=== PATIENT | female | born 1945 | race Caucasian/White ===

== ENCOUNTER → 2021-03-07 | Outpatient (CLI) | payer MEDICARE ==
[~2021-03-07] MED LIST: OMNIPAQUE 350 MG/ML, 150 ML BOTTLE ONE
== END | disposition home or self-care (01) ==
LOC: CFH 14:03
PROVIDERS: ATTEND Internal Medicine Cardiovascular Disease
DX: I48.0 Paroxysmal atrial fibrillation (principal)
CPT/HCPCS: 75572; 82565; Q9967

== ENCOUNTER 2021-05-08 09:53 | Observation (INO) | payer MEDICARE ==
[~2021-05-08] VITALS: Ht 162.6 cm; Wt 54.8 kg
[~2021-05-08 09:53] MED LIST changes: +AMIO100T4 PO; +APIX5TAB PO; +ASCO100019 PO; +ASPI81TA45 PO; +ATOR40TA PO; +CHOL10003 PO; +COLC0.6C3 PO; +CYAN100014 PO; +DULO30CA2 PO; +LEVO50TA5 PO; +MAGN400T36 PO; +METO25TA35 PO; +MULT-658 PO; -OMNIPAQUE 350 MG/ML, 150 ML BOTTLE ONE; +[UNRECOGNIZED DRUG - CODE] PO
[2021-05-08 10:53] VITALS: BP 125/58
[2021-05-08] MEDS ORDERED: SODIUM CHLORIDE 0.9% 1,000 ML IV ONE (11:00)
[2021-05-08] MEDS ORDERED: FENTANYL PF 100 MCG/2ML ONE (15:03)
[2021-05-08] MEDS: FENTANYL PF 100 MCG/2ML IV PRN ×2 (15:05→15:10)
[2021-05-08] MEDS ORDERED: HYDROmorphone 1 MG/ML, 1ML INJ IVPush PRN (15:30)
[2021-05-08 19:00] VITALS: BP 147/73
[2021-05-08] MEDS ORDERED: ATORVASTATIN 40 MG TABLET PO SCH (21:00)
[2021-05-08] MEDS ORDERED: ZOLPIDEM 5MG TABLET PO PRN (21:30)
[2021-05-09 01:33] VITALS: BP 153/69
[2021-05-09] MEDS ORDERED: LEVOTHYROXINE 50 MCG TABLET PO SCH (06:00)
[2021-05-09 08:41] VITALS: BP 90/47
[2021-05-09] MEDS ORDERED: METOPROLOL TARTRATE 50 MG TAB PO SCH (09:00)
[2021-05-09] MEDS ORDERED: MULTIVITAMIN 1 TABLET PO SCH (09:00)
[2021-05-09] MEDS ORDERED: AMIODARONE 200 MG TABLET PO SCH (09:00)
[2021-05-09] MEDS ORDERED: MAGNESIUM OXIDE 400 MG TABLET PO SCH (09:00)
[2021-05-09] MEDS ORDERED: DULOXETINE 30 MG CAPSULE.DR PO SCH (09:00)
[2021-05-09 10:42] VITALS: BP 132/56
[2021-05-09] MEDS ORDERED: CLOP75TA52 PO (11:19)
== END 2021-05-09 13:02 | disposition home or self-care (01) ==
LOC: CACL 09:53 → 5SO 15:57 → CACL 22:09 → 5SO 22:10
PROVIDERS: ADMIT Internal Medicine Cardiovascular Disease; ATTEND Internal Medicine Cardiovascular Disease
DX: K22.3 Perforation of esophagus (principal); Z20.822 Contact with and (suspected) exposure to COVID-19; J02.9 Acute pharyngitis, unspecified; I48.91 Unspecified atrial fibrillation; I48.92 Unspecified atrial flutter; I49.5 Sick sinus syndrome; D68.69 Other thrombophilia; E03.9 Hypothyroidism, unspecified; E78.5 Hyperlipidemia, unspecified; Z86.73 Personal history of transient ischemic attack (TIA), and cerebral infarction without residual deficits; Z95.0 Presence of cardiac pacemaker; Z79.01 Long term (current) use of anticoagulants; Z79.899 Other long term (current) drug therapy
CPT/HCPCS: 43235; 87635; 93312; 93325; G0378; J3010